=== PATIENT | female | born 1975 | race Caucasian/White ===

== ENCOUNTER 2016-07-07 19:09 | Emergency (ER) | payer SELFPAY ==
--- NOTE | ~2016-07-07 | ER ---
PATIENT'S NAME: LINDA SCOTT ENA [facility] AGE: 41 Y [address] ROOM: [place] [id number] LOCATION: [facility] ADMIT DATE: 07/07/2016 ER/Outpatient Report DISCHARGE DATE: 07/07/2016 FAMILY PHYSICIAN: PHYSICIAN, NO ATTENDING PHYSICIAN: Fabian Strong Time of Arrival: 1932 hours. Time of Evaluation: 1940 hours. CHIEF COMPLAINT: Right elbow pain. HISTORY OF PRESENT ILLNESS: The patient is a 41-year-old female, who presents to the emergency department today with a chief complaint of right arm pain. She reports that she fell 1 hour prior to arrival, landed on her right elbow. She also complains of some pain at her right distal wrist area. It is sharp pain. It is worse with movement. Denies any head injury. No loss of consciousness. PAST MEDICAL HISTORY: None. PAST SURGICAL HISTORY: None. SOCIAL HISTORY: The patient smokes half pack per day. Denies any alcohol or illicit drug use. ALLERGIES: NO KNOWN DRUG ALLERGIES. MEDICATIONS: None. PRIMARY CARE DOCTOR: None. REVIEW OF SYSTEMS: All systems are reviewed by myself and are negative with the exception of those discussed in the HPI and past medical history. PHYSICAL EXAMINATION: VITAL SIGNS: Weight 73.5 kg, blood pressure 125/93, pulse 77, respiratory rate 16, temperature 99.1, oxygen saturation 98% on room air. GENERAL: The patient is a 41-year-old female, who appears stated age, in no PATIENT'S NAME: LINDA SCOTT ENA K [facility] AGE: 41 Y [address] ROOM: [place] [id number] LOCATION: [facility] ADMIT DATE: 07/07/2016 ER/Outpatient Report DISCHARGE DATE: 07/07/2016 FAMILY PHYSICIAN: PHYSICIAN, NO ATTENDING PHYSICIAN: Fabian Strong acute distress. HEENT: Normocephalic, atraumatic. Pupils are equal, round, and reactive to light and accommodation. Extraocular motions are intact. Nares are patent bilaterally. TMs are clear. Oropharynx is clear. NECK: Supple. There is no nuchal rigidity. CARDIOVASCULAR: Regular rate and rhythm. No murmurs, rubs, or gallops. LUNGS: Clear to auscultation bilaterally. No wheezes, rales, or rhonchi. MUSCULOSKELETAL: The patient does have tenderness to palpation at the elbow as well as the distal radius. There is no scaphoid tenderness to palpation. The patient is neurovascularly intact. 2/4 pulses. Sensation is intact. SKIN: Warm and dry. LABORATORY DATA AND X-RAYS: Three-view x-ray is obtained of the elbow and wrist. I see there is a questionable increase in the anterior fat pad on the right elbow. I do not see any other fractures or dislocations. X-ray of the wrist is unremarkable. Once again, the patient has no scaphoid tenderness. X-ray otherwise is unremarkable. IMPRESSION: 1. Mechanical fall. 2. Right elbow injury. 3. Initial visit. EMERGENCY DEPARTMENT COURSE: The patient was brought back to the examination room. Seen and evaluated by myself. X-rays are obtained as described above. The patient was given [employer]. I have discussed I would like the patient to follow up with Chun Pierce in 3 to 5 days. We have placed the patient in a right arm sling. I have discussed the return to care instructions including worsening symptoms or any other concerns to return to the emergency department as soon as possible. The patient is agreeable without further questions at this time. DISPOSITION: The patient discharged home in good condition. DO JOHAN HUDSON/modl /[id number] d: 07/08/16 0000 t: 07/08/16 0157, OUTPATIENT REPORT
== END 2016-07-07 20:42 | disposition disaster alternative care site (69) ==
LOC: GACC 19:09
DX: S59.901A Unspecified injury of right elbow, initial encounter (principal); F17.210 Nicotine dependence, cigarettes, uncomplicated; W19.XXXA Unspecified fall, initial encounter